=== PATIENT | male | born 1980 | race Caucasian/White ===

== ENCOUNTER → 2020-03-27 | Outpatient (CLI) | payer BC ==
--- NOTE | 2020-03-28 14:52 | USB ---
Reason for exam: clinical finding. Indicated problem(s): pain in the right breast. Physical Findings: Nurse Summary: right breast 10-1 o'clock "toure" than left breast (nurse dw). US Breast RT Technologist: Yasmine Rico Right complete breast ultrasound includes all four quadrants, the retroareolar region and axilla. There seems to be some gynecomastia but additional possible breast tissue at 11 o'clock and 2 o'clock sites of fullness. These results were verbally communicated with the patient and result sheet given to the patient on 03/27/20. ASSESSMENT: Probably benign, BI-RAD 3 RECOMMENDATION: Special view mammogram of both breasts. (3D)
--- NOTE | 2020-03-28 14:54 | MM ---
Reason for exam: clinical finding. MG 3D Diag Mammo W/Cad JASMIN Bilateral CC and MLO view(s) were taken. The breast tissue is heterogeneously dense. This may lower the sensitivity of mammography. Moderate breast tissue on the right. Mildly enlarged node measuring 3.7 x 2.8cm right axilla probably reactive. This can be reassessed with a 3 month follow up ultrasound. These results were verbally communicated with the patient and result sheet given to the patient on 03/27/20. ASSESSMENT: Probably benign, BI-RAD 3 RECOMMENDATION: Ultrasound of the right breast in 3 months. Manage on a clinical basis with regard to asymmetric right gynecomastia.
== END | disposition home or self-care (01) ==
LOC: RADUSWWP 14:31
PROVIDERS: ATTEND Family Medicine
DX: N64.4 Mastodynia (principal); R92.8 Other abnormal and inconclusive findings on diagnostic imaging of breast
CPT/HCPCS: 77062; 77066

== ENCOUNTER → 2020-03-31 | Outpatient (CLI) | payer BC ==
[2020-03-31 14:27] VITALS: BP 134/87; PULSE 62; RESP 18; TEMP 98.3
--- NOTE | 2020-03-31 14:43 | P.GSHP ---
History of Present Illness H&P Date: 03/31/20 Chief Complaint: breast pain right Zoltan is a 40 year old make with a complaint of right breast pain. He is seen in consultation for DR. Pretty. He had a bilateral mammogram and this revealed a 3.7 x 2.8 cm right axillary node. An moderate breast tissue on the right. He underwent a right breast ultrasound. There appeared to be gynecomastia but additional possible breast tissue at 11:00 and 2:00. This was felt to be p probably benign BIRADS 3. Percent of the right breast in 3 months time was recommended. Laboratory studies were done and these revealed a TSH in the normal range of 1.7 a testosterone in the low range of 85 estradiol 22.9 in the normal range and prolactin 37.8 which was elevated the high limit of that was 17.7. He complains of some fullness in the right breast near the nipple areolar complex. The pain only comes when he is sleeping. He sleeps on his right side. He states the pain feels like a paper cut. It does not spread any place. It happens every night for the last month and a half. It goes away when he moves. He is not complaining of any testicular masses. He does not take any medication. Caffeine: rare nicotine: none liseth-bromine: occasional Family History: no family history Surgical History: right foot sking injury Medical History: none Social history: nicotine: none alcohol: occasional drugs: none - Constitutional Constitutional: Denies chills, Denies fever - EENT Eyes: denies blurred vision, denies pain Ears: deny: decreased hearing, tinnitus Ears, nose, mouth and throat: Denies headache, Denies sore throat - Breasts Breasts: bilateral: as per HPI - Cardiovascular Cardiovascular: Denies chest pain, Denies shortness of breath - Respiratory Respiratory: Denies cough, Denies 7 - Gastrointestinal Gastrointestinal: Denies abdominal pain, Denies diarrhea, Denies nausea, Denies vomiting - Genitourinary (Male) Genitourinary: Denies dysuria, Denies hematuria - Musculoskeletal Musculoskeletal: Denies myalgias - Integumentary Integumentary: Denies pruritus, Denies rash - Neurological Neurological: Denies numbness, Denies weakness - Psychiatric Psychiatric: Denies anxiety, Denies depression - Endocrine Endocrine: Denies fatigue, Denies weight change - Hematologic/Lymphatic Comment: none - Allergic/Immunologic Allergic/Immunologic: Reports as per HPI Medications and Allergies Home Medications Medication Instructions Recorded Confirmed Type Trinity-3 Fatty Acids/Fish Oil [Fish 1 each PO QAM 03/31/20 03/31/20 History Oil 1,000 mg Softgel] Allergies Allergy/AdvReac Type Severity Reaction Status Date / Time No Known Allergies Allergy Unverified 03/31/20 14:18 Surgical - Exam BMI 36 - General well developed, no distress - Eyes normal ocular movement - ENT normal pinna, no hearing loss - Neck no masses, trachea midline - Respiratory normal expansion, normal respiratory effort, clear to auscultation - Cardiovascular Rhythm: regular Heart Sounds: normal: S1, S2 - Abdomen Abdomen: soft, bowel sounds - Genitourinary No testicular masses testicles present - Integumentary normal turgor - Neurologic no disoriented, no combative - Musculoskeletal normal gait - Psychiatric oriented to time, oriented to person, oriented to place, speech is normal, memory intact breast exam: Right breast larger than left breast Palpation: Right breast: Multi-positional exam gynecomastia with tenderness under the nipple areolar complex Right axilla: No adenopathy of concern Left breast: Multi-positional exam gynecomastia no dominant masses or nodules of concern decreased from that on the right side Left axilla: No adenopathy of concern Results Mammogram and ultrasound results reviewed Assessment and Plan Assessment: Impression: 1. Right breast mastodynia 2. Right breast gynecomastia 3. Left breast gynecomastia to a lesser degree 4. Elevated prolactin 5. Decreased testosterone 6. Nothing which would warrant interventional biopsy of the breast at this time Plan: 1. The patient has shown me a picture [id number] testosterone supplement Magnisteron from [place] whether he should take this or not, I have requested that he see an athletic team physician before doing anything like that 2. Repeat right breast ultrasound in 3 months 3. Follow up here in 4 months 4. We have discussed breast surgery to decrease the size of the breast se condary to the gynecomastia and the pain however at this time I would recommend that we first find out the reason for the elevated prolactin and decreased testosterone CC: Dr. Pretty Encounter 30 minutes, time spent in reviewing medical records, physical examination, and counselling.
== END | disposition home or self-care (01) ==
LOC: EDSEX → WWCWWP 13:39
PROVIDERS: ATTEND Surgery
DX: Z53.9 Procedure and treatment not carried out, unspecified reason (principal)

== ENCOUNTER → 2020-06-26 | Outpatient (CLI) | payer BC ==
--- NOTE | 2020-06-27 09:13 | USB ---
Reason for exam: follow-up at short interval from prior study. Physical Findings: Nurse Summary: Patient complains of occasional pain right breast upper half, denies other concerns today, right breast fullness improving, thickening right breast 10-1 o'clock (nurse TM). US Breast Limited BILAT Right limited breast ultrasound including focal area of concern, retroareolar and axilla demonstrates a 2.2 x 2.0 x 1.5cm oval axilla node and a 1.0 x 0.8cm irregular lesion at the posterior nipple. Left limited breast ultrasound including focal area of concern, retroareolar and axilla demonstrates a 0.7 x 0.4cm irregular lesion at the posterior nipple. Right retroareolar focal asymmetry has decreased most consistent with gynecomastia. Follow up clinically. Return to imaging as clinically indicated. These results were verbally communicated with the patient and result sheet given to the patient on 06/26/20. ASSESSMENT: Benign, BI-RAD 2 RECOMMENDATION: Clinical management of both breasts. Manage patient on a clinical basis.
== END | disposition home or self-care (01) ==
LOC: RADUSWWP 07:10
PROVIDERS: ATTEND Surgery
DX: R92.8 Other abnormal and inconclusive findings on diagnostic imaging of breast (principal)

== ENCOUNTER → 2023-09-23 | Outpatient (CLI) | payer BC ==
--- NOTE | 2023-10-21 10:16 | MR ---
Patient: Dalia Mcdermott Ordering Physician: Unknown, Unknown ID: [id number] Phone, Pager: Maxime ne: N/A Pager: N/A : 1980 Age/Gender: 43Y, M Primary Location: N/A Procedure: MRI PITUTARY W /WO CONTRAST Study Date: 09/23/2023 6:18:08 AM EXAMINATION TYPE: MR pituitary wo/w con DATE OF EXAM: 10/04/2023 8:02 AM CLINICAL INDICATION: Hyperprolactinemia COMPARISON: None TECHNIQUE: Multi planar, multi sequence imaging was performed through the brain. Specialized thin s equences were obtained through the pituitary gland/sella turcica. Pre-and post gadolinium sequences were obtained. IV Contrast: cc 11.5 cc Gadavist FINDINGS: The lerma-white junctions, ventricular system, and basal cisterns appear unremarkable. The morphology of the pituitary gland is within normal limits. The pituitary stalk is not deviated. After administ ration of gadolinium, homogeneous pituitary enhancement is seen. The intracranial arterial flow voids are intact. IMPRESSION: 1. No pituitary gland abnormality. No convincing MRI evidence for pituitary micro or macroadenoma. If the patient has abnormal labs and/or symptoms possibly related to pituitary neoplasm I would conside r repeat MRI in 6-12 months time to reassess. 2. No evidence of intracranial mass nor acute/subacute CVA.
== END | disposition home or self-care (01) ==
LOC: RADMRIMAIN 07:03
PROVIDERS: ATTEND Family Medicine
DX: E22.1 Hyperprolactinemia (principal)
CPT/HCPCS: 70553; A9585

== ENCOUNTER → 2023-12-08 | Outpatient (CLI) | payer BC ==
[2023-12-08 10:54] LABS: ALT 38 U/L (10-49); AST 22 U/L (14-35); Albumin 4.5 g/dL (3.8-4.9); Albumin/Globulin Ratio 1.67 Ratio (1.60-3.17); Alkaline Phosphatase 60 U/L (41-126); BUN/Creat Ratio 17.44 Ratio (12.00-20.00); Blood Urea Nitrogen 15.7 mg/dL (9.0-27.0); Calcium 9.5 mg/dL (8.7-10.3); Carbon Dioxide 26.4 mmol/L (21.6-31.8); Chloride 103 mmol/L (96-109); Globulin 2.7 g/dL (1.6-3.3); Glucose 107 mg/dL (70-110); Potassium 4.7 mmol/L (3.5-5.5); Sodium 141 mmol/L (135-145); Total Bilirubin 0.3 mg/dL (0.3-1.2); Total Protein 7.2 g/dL (6.2-8.2)
[2023-12-08 10:55] LABS: T4, Free (Free Thyroxine) 0.76 ng/dL (0.80-1.80)
[2023-12-08 12:48] LABS: Follicle Stimulating Hormone <0.3 mIU/mL; Luteinizing Hormone <1.0 mIU/mL
== END | disposition home or self-care (01) ==
LOC: LABWHC1 08:11
PROVIDERS: ATTEND Family Medicine
CPT/HCPCS: 36415; 80053; 82024; 82040; 82306; 82533; 83001; 83002; 84146; 84270; 84403; 84439; 84443